=== PATIENT | male | born 1940 | race Caucasian/White ===

== ENCOUNTER 2018-02-23 16:22 | Emergency (ER) | payer MEDICARE, BC ==
[2018-02-23 16:41] VITALS: BP 114/79
--- NOTE | 2018-02-23 17:18 | UC ---
Eye Complaint HPI - HPI Summary HPI Summary: 78 yo male presents with right upper eyelid redness and swelling for the last 3 days. Has not been applying any compresses or anything OTC. Denies injury or vision changes. Mildly tender. - History of Current Complaint Chief Complaint: UCEye Stated Complaint: EYE IRRITATION Time Seen by Provider: 02/23/18 16:52 Hx Obtained From: Patient Onset/Duration: Sudden Onset Severity Initially: Mild Severity Currently: Mild Pain Intensity: 2 Pain Scale Used: 0-10 Numeric Location of Injury: Eye Lid (upper) - Allergies/Home Medications Home Medications: Home Medications Aspirin 81 mg CHEW TAB* [Aspirin Low Dose TAB*] 81 mg PO DAILY 02/23/18 [ History Confirmed 02/23/18] Atorvastatin* [Lipitor*] 10 mg PO DAILY 02/23/18 [History Confirmed 02/23/18] Dabigatran CAP(NF) [Pradaxa CAP(NF)] 75 mg PO BID 02/23/18 [History Confirmed ] Iron 18 mg PO DAILY WITH MEAL 02/23/18 [History Confirmed 02/23/18] Levothyroxine TAB* [Synthroid TAB*] 137 mcg PO 0800 02/23/18 [History Confirmed 02/23/18] Metoprolol Succinate 50 mg PO DAILY WITH MEAL 02/23/18 [History Confirmed ] PMH/Surg Hx/FS Hx/Imm Hx Endocrine History: Hypothyroidism, Dyslipidemia Cardiovascular History: Cardiac Disease, Hypertension - Surgical History Surgical History: Yes Surgery Procedure, Year, and Place: right knee surgery. right foot. bone spurs ankles - Family History Known Family History: Positive: Cardiac Disease - Social History Occupation: Retired Lives: With Family Alcohol Use: None Substance Use Type: None Smoking Status (MU): Former Smoker Type: Cigars Review of Systems Constitutional: Negative Skin: Negative Eyes: Other - Right upper eyelid swelling ENT: Negative Respiratory: Negative Cardiovascular: Negative Neurological: Negative Psychological: Negative All Other Systems Reviewed And Are Negative: Yes Physical Exam - Summary Physical Exam Summary: GENERAL: NAD. WDWN. No pain distress. SKIN: No rashes, sores, lesions, or open wounds. HEENT: Head: AT/NC Eyes: EOM intact. Conjunctiva clear without inflammation or discharge. RIGHT upper eyelid with 1-2mm nodule that is mildly erythematous and TTP. No scleral injection. NECK: Supple. Nontender. No lymphadenopathy. CHEST: No accessory muscle use. Breathing comfortably and in no distress. CV: Pulses intact. Brisk cap refill. NEURO: Alert. CN II-XII grossly intact. PSYCH: Age appropriate behavior. Triage Information Reviewed: Yes Vital Signs: Initial Vital Signs Temp 98.1 F 02/23/18 16:32 Pulse 72 02/23/18 16:32 Resp 20 02/23/18 16:32 BP 114/79 02/23/18 16:32 Pulse Ox 99 02/23/18 16:32 Vital Signs Reviewed: Yes Eye Complaint Course/Dx - Course Course Of Treatment: Stye right eye - advised to apply warm compresses in addition to anbx eye drop - Differential Dx/Diagnosis Provider Diagnoses: Stye right upper eyelid Discharge - Sign-Out/Discharge Documenting (check all that apply): Patient Departure - Discharge Plan Condition: Stable Disposition: HOME Prescriptions: Polymyx/Trimethoprim OPTH* [Polytrim OPHTH*] 1 drop RIGHT EYE QID #1 btl Patient Education Materials: Alanis (ED) Referrals: No Primary Care Phys,NOPCP [Primary Care Provider] - Additional Instructions: If you develop a fever, shortness of breath, chest pain, new or worsening symptoms - please call your PCP or go to the ED. - Billing Disposition and Condition Condition: STABLE Disposition: Home
== END 2018-02-23 17:30 | disposition home or self-care (01) ==
LOC: UCEAST 16:22
DX: H00.021 Hordeolum internum right upper eyelid (principal); E03.9 Hypothyroidism, unspecified; E78.5 Hyperlipidemia, unspecified; I10 Essential (primary) hypertension; Z79.82 Long term (current) use of aspirin; Z82.49 Family history of ischemic heart disease and other diseases of the circulatory system; Z87.891 Personal history of nicotine dependence
CPT/HCPCS: 99202; G0463

== ENCOUNTER 2018-07-16 20:26 | Observation (INO) | payer MEDICARE, BC ==
--- OUTSIDE RECORDS SUMMARY | 2018-07-16 20:40 | XMS REPORT ---
:1940 External Reference #:[id number] Author Organization [facility] Address [address] [place] [address] Phone [phone] Care Team Providers Name Role Phone Dwain Monae MD Care Team Information Fisheries Enforcement Officer Unavailable Dwain Monae MD Primary Care Physician Unavailable Payers Type Date Identification Numbers Payment Provider Subscriber Medicare Primary Effective: Policy Number: Medicare [place] Jeanne Scott JR 2003 [id number] Group Name: Medicare [address] PayID: [id number] [place] [address] Medigap Part B Policy Number: [id number] /[facility] Jeanne Scott JR Group Number: [id number] [address] [address] Group Name: [place] [address] PayID: [id number] Problems Description No Information Social History Type Date Description Comments Marital Status . 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[employer] Former Cigar Smoker 1 Daily ETOH Use Denies alcohol use Recreational Drug Use Denies Drug Use Exercise Type/Frequency Exercises rarely Allergies, Adverse Reactions, Alerts Date Description Reaction Status Severity Comments 06/18/2018 Soma active 06/18/2018 Demerol active Medications Medication Date Status Form Strength Qnty SIG Indications Ordering Provider Triamcinolone 06/18 Active Cream 0.1% 454gm apply Penny Acetonide sparingly to Evans, itchy rash INTERVENTIONAL RADIOLOGY TECHNOLOGIST bilateral upper extremities , lower extremities twice a day as needed Levothyroxine Active Tablets 137mcg 90tab 1 by mouth Penny Sodium /0000 s every day Evans, INTERVENTIONAL RADIOLOGY TECHNOLOGIST Metoprolol Active Tablets 50mg 90tab 1 by mouth Penny Succinate ER /0000 ER 24HR s every day Evans, INTERVENTIONAL RADIOLOGY TECHNOLOGIST Atorvastatin Active Tablets 10mg 90tab 1 by mouth Penny Calcium /0000 s every day Evans, INTERVENTIONAL RADIOLOGY TECHNOLOGIST Iron 27 Active Tablets 240(27Fe) 90tab 1 po daily Penny /0000 mg s Evans INTERVENTIONAL RADIOLOGY TECHNOLOGIST Aspir-81 Active Tablets 81mg 90tab 1 by mouth Penny /0000 DR vides every day Evans, INTERVENTIONAL RADIOLOGY TECHNOLOGIST Pradaxa Active Capsules 75mg 180ca 1 bid po Penny /0000 ps Evans, INTERVENTIONAL RADIOLOGY TECHNOLOGIST Cyanocobalamin Active Solution 1000mcg/M 90ml monthly subQ Penny /[address] [facility], [facility] Immunizations CPT Code Status Date Vaccine Lot # [id number] Given 06/18/2018 High-Dose, Influenza Virus Vacccine-fluzone 65 and [id number] older Vital Signs Date Vital Result Comment 06/18/2018 BP Systolic 110 mmHg BP Diastolic 80 mmHg Heart Rate 60 /min Irr Body Temperature 97.9 F Weight 221.00 lb Results Description No Information Procedures Date CPT Code Description Status 07/20/2015 Colonoscopy Completed Plan of Care Future Appointment(s):10/18/2018 1:40 pm - Dwain Monae MD at [facility] Ysyxza2506/18/2018 - Penny Krueger, FNPE03.9 Hypothyroidism, unspecifiedComments:Please book a complete physical examination with Dr Monae in 4-6 months for continued evaluation and uiufyrlhmrT30.2 Chronic atrial jypscihsihcbO08.8 Other symbolic alszutamodhnM78.9 Urticaria, unspecifiedComments:I think this is eczema, will treat accordingly, but you will also be referred to Dr Tirado After shower, oatmeal soaks/compresses/ poulticePat dry, apply triamcinolone cream while skin still moist, then follow with thick ointment such as Cera-Ve, EucerinAllNew Medication:Triamcinolone Acetonide 0.1 %Comments:~B_~U_Medication Management~b_~u_ Patient Understands medications he 's taking? Yes No Are there Barriers to Adherence? Yes No Has the patient been asked about herbal supplements and therapies, and OTC meds? Yes No As always, we strongly encourage a healthy diet and makingphysical activity a part of your every day life. If you have questions about how or where to start, please contact the office.
--- NOTE | 2018-07-16 20:45 | ED ---
Neurological HPI - HPI Summary HPI Summary: A 78 y/o male r brought in by ambulance presents to the ED c/o dizziness. In the ED room, the patient has a pulse of 70 BPM, O2 saturation of 99%, and blood pressure of 117/71. According to the patient, he became dizzy all of a sudden and became very diaphoretic/hot. He stated that he was at the [facility] in [place], [place] where he was watching his two grandchildren. He stated that he was sitting down and he started to first get hot/diaphoretic. Then he went to the bathroom where he urinated, and came back to his seat. He was still diaphoretic, but then became dizzy. He denies any chest pain or SOB. He also denies any recent sickness, chills, fever, vomiting, diarrhea, and coughing. He noted that the symptoms lasted about 15-20 minutes. He was at the [facility] about about an hour at that point. Patient noted that one time in [place] he lost consciousness, but that was a very long time ago. The patient has been eating and drinking well. No ETOH today as he does not drink. Patient's stools are always black due to the patient taking iron. As per , the patient looks perfectly normal. Patient is on HBP medication and has a history of atrial fibrillation. - History of Current Complaint Chief Complaint: EDDizziness Stated Complaint: DIZZINESS Hx Obtained From: Patient Onset/Duration: Sudden Onset, Started minutes ago, Resolved Timing: Sudden Onset Current Severity: None Number of Seizures: 0 Pain Intensity: 0 Pain Scale Used: 0-10 Numeric Character: Dizzy Aggravating: Nothing Alleviating: Nothing Associated Signs and Symptoms: Positive: Diaphoresis PMH/Surg Hx/FS Hx/Imm Hx Endocrine/Hematology History: Reports: Hx Thyroid Disease - removed Denies: Hx Diabetes Cardiovascular History: Reports: Hx Hypertension Respiratory History: Denies: Hx Asthma, Hx Chronic Obstructive Pulmonary Disease (COPD) GI History: Denies: Hx Ulcer - Surgical History Surgery Procedure, Year, and Place: right knee surgery. right foot. bone spurs ankles Infectious Disease History: No Infectious Disease History: Denies: Hx Hepatitis, Hx Human Immunodeficiency Virus (HIV), Traveled Outside the [place] in Last 30 Days - Family History Known Family History: Positive: Cardiac Disease - Social History Alcohol Use: None Substance Use Type: Reports: None Smoking Status (MU): Former Smoker Type: Cigars Review of Systems Positive: Skin Diaphoresis. Negative: Fever, Chills Negative: Erythema Negative: Sore Throat Negative: Chest Pain Negative: Shortness Of Breath, Cough Negative: Abdominal Pain, Vomiting, Nausea Negative: dysuria, hematuria Negative: Myalgia, Edema Negative: Rash Neurological: Other - POSITIVE: DIZZINESS All Other Systems Reviewed And Are Negative: Yes Physical Exam - Summary Physical Exam Summary: Constitutional: Well-developed, Well-nourished, Alert. (-) Distressed Skin: Warm, Dry HENT: Normocephalic; Atraumatic Eyes: Conjunctiva normal Neck: Musculoskeletal ROM normal neck. (-) JVD, (-) Stridor, (-) Tracheal deviation Cardio: Rhythm regular, rate normal, Heart sounds normal; Intact distal pulses; The pedal pulses are 2+ and symmetric. Radial pulses are 2+ and symmetric. (-) Murmur Pulmonary/Chest wall: Effort normal. (-) Respiratory distress, (-) Wheezes, (-) Rales Abd: Soft, (-) epigastric tenderness, (-) Distension, (-) Guarding, (-) Rebound Musculoskeletal: (-) Edema Lymph: (-) Cervical adenopathy Neuro: Alert, Oriented x3 Psych: Mood and affect Normal Triage Information Reviewed: Yes Vital Signs On Initial Exam: Initial Vitals Temp Pulse Resp BP Pulse Ox 98.1 F 78 20 117/71 99 07/16/18 20:29 07/16/18 20:29 07/16/18 20:29 07/16/18 20:29 07/16/18 20:29 Vital Signs Reviewed: Yes Diagnostics - Vital Signs Vital Signs Temp Pulse Resp BP Pulse Ox 07/16/18 20:29 98.1 F 78 20 117/71 99 - Laboratory Result Diagrams: 07/16/18 20:53 07/16/18 20:53 Lab Statement: Any lab studies that have been ordered have been reviewed, and results considered in the medical decision making process. - Radiology CXR Radiology Interpretation Completed By: ED Physician Summary of Radiographic Findings: NO ACUTE DISEASE. PENDING OFFICIAL REPORT. - EKG 2047 Cardiac Rate: Other Rate - 62 BPM EKG Rhythm: Atrial Fibrillation - 62 BPM Summary of EKG Findings: NEGATIVE STEMI. Re-Evaluation - Re-Evaluation First Eval Re-Evaluation Time: 21:40 Change: Unchanged Comment: UPDATED PATIENT ON RESULTS. Course/Dx - Course Course Of Treatment: A 78 y/o male r brought in by ambulance presents to the ED c/o dizziness. In the ED room, the patient has a pulse of 70 BPM, O2 saturation of 99%, and blood pressure of 117/71. According to the patient, he became dizzy all of a sudden and became very diaphoretic/hot. He stated that he was at the [facility] in [place], [place] where he was watching his two grandchildren. He stated that he was sitting down and he started to first get hot/diaphoretic. Then he went to the bathroom where he urinated, and came back to his seat. He was still diaphoretic, but then became dizzy. He denies any chest pain or SOB. He also denies any recent sickness, chills, fever, vomiting, diarrhea, and coughing. He noted that the symptoms lasted about 15-20 minutes. [facility]. Patient noted that one time in [place] he lost consciousness, but that was a very long time ago. The patient has been eating and drinking well. Physical examination was unremarkable. A CXR revealed no acute disease. A EKG revealed a atrial fibrillation rate of 62 BPM. Hematology and Chemistry screens were done. No significant laboratory abnormalities were found. Troponin was 0.02. In the ED course, the patient received no medications. I suspect a arrhythmia could have contributed to patient symptoms. Most likely bradycardia. Patient requires telemetry monitoring overnight. Possible medication adjustment. Patient is currently on beta blockers. Patient care was discussed with hospitalist, Dr. Gila Monte, who accepts patient for admission. Patient will be admitted with a diagnosis of symptomatic bradycardia, dizziness, and diaphoresis. Patient is agreeable with this plan. - Diagnoses Provider Diagnoses: Symptomatic bradycardia, Dizziness, Diaphoresis - Physician Notifications Discussed Care Of Patient With: Gila Monte Time Discussed With Above Provider: 21:46 Instructed by Provider To: Other - ACCEPTS PATIENT FOR ADMISSION. Discharge - Sign-Out/Discharge Documenting (check all that apply): Patient Departure - ADMIT, Sign-Out Patient - ELIZ Signing out patient TO: Gila Monte Receiving patient FROM: Renato Harman - Discharge Plan Condition: Stable Disposition: ADMITTED TO [facility] Referrals: No Primary Care Phys,NOPCP [Medical Doctor] - - Attestation Statements Document Initiated by Scribe: Yes Documenting Scribe: Jerry Dempsey Provider For Whom Adeolaibe is Documenting (Include Credential): Renato Harman MD Scribe Attestation: Jerry Mendosa, scribed for Renato Harman MD on 07/16/18 at 2143. Status of Scribe Document: Ready
[2018-07-16 21:00] LABS: ABS Basophils 0.1 10^3/ul (0-0.2); ABS Eosinophils 0.5 10^3/ul (0-0.6); ABS Lymphocytes 1.5 10^3/ul (1.0-4.8); ABS Monocytes 0.5 10^3/ul (0-0.8); ABS Neutrophils 4.9 10^3/ul (1.5-7.7); ABS Nucleated RBC 0 10^3/ul; Hematocrit 43 % (42-52); Hemoglobin 14.6 g/dl (14.0-18.0); Lymphocyte % 20.5 %; Mean Corpuscular HGB Conc 34 g/dl (31-36); Mean Corpuscular Hemoglobin 31 pg (27-31); Mean Corpuscular Volume 92 fL (80-94); Mean Platelet Volume 9.4 fL (7.4-10.4); Nucleated Red Blood Cells % 0; Platelet Count 194 10^3/ul (150-450); Red Blood Count 4.67 10^6/ul (4.00-5.40); Red Cell Distribution Width 13 % (10.5-15); White Blood Count 7.5 10^3/ul (3.5-10.8)
[2018-07-16 21:17] LABS: Albumin 4.2 g/dL (3.2-5.2); Albumin/Globulin Ratio 1.4 (1-3); Calcium 9.3 mg/dL (8.6-10.3); EGFR Non-African American 51.7 (>60); Globulin 2.9 g/dL (2-4); Potassium 4.5 mmol/L (3.5-5.0); Total Bilirubin 0.4 mg/dL (0.2-1.0); Total Protein 7.1 g/dL (6.4-8.9)
[2018-07-16 21:54] LABS: TSH (Thyroid Stimulating Horm) 7.43 mcIU/mL (0.34-5.60)
[2018-07-16 21:56] LABS: Free T4 0.75 ng/dL (0.61-1.12)
[2018-07-16] MEDS ORDERED: Acetaminophen TAB* 325 MG PO PRN (22:32)
--- NOTE | 2018-07-17 00:48 | HP ---
CC: Dr. Monae; Dr. Azul* HOSPITAL MEDICINE HISTORY AND PHYSICAL: DATE OF ADMISSION: 07/16/18 PRIMARY CARE PHYSICIAN: Dr. Monae. COSMETICS AND TOILETRIES SALESPERSON: Dr. Azul. ATTENDING PHYSICIAN: Dr. Gila Monte* (dictation provided by Judy Scott NP). CHIEF COMPLAINT: Dizzy, pale, pemberton, diaphoretic. HISTORY OF PRESENT ILLNESS: Mr. Scott is an 78-year-old male with past medical history of atrial fibrillation and hypothyroidism, who presents to the hospital today after an episode in which he became lightheaded, dizzy, pale, and diaphoretic. Mr. Scott states that he has been in his normal state of health recently with no acute complaints. He recently moved from the [facility] to [place] to be near his children. He recently established care with Dr. Monae's office and was also planned to see Dr. Azul next week for his history of atrial fibrillation. The patient states that today he was feeling well when he went out to watch his 2 granddaughters in ice skating rink. While there and seated, he suddenly became pale. He went to the bathroom to urinate, and on returning, he felt diaphoretic. His said that he looked pale and pemberton. This episode lasted about 15 to 20 minutes. He states he has never had anything exactly like this happen to him before. He has a distant history, about 15 to 20 years ago, of passing out in [place], but has had no similar episode since. The patient has a history of atrial fibrillation and is on metoprolol as well as Pradaxa. He is on levothyroxine for hypothyroidism and his reports that several years ago it was found that he "had no thyroid." In the emergency room, Mr. Scott had a heart rate running 50 to 60 with atrial fibrillation. His blood pressure was stable, running 110 to 120 systolically. His labs were remarkable only for a high TSH of 7.43 with a free T4 of 0.75. PAST MEDICAL HISTORY: 1. Hypothyroidism. 2. Atrial fibrillation, on Pradaxa. 3. Multiple knee surgeries. 4. History of symptomatic anemia, requiring blood transfusions, with admission to hospital in [facility] with no etiology determined. MEDICATIONS: 1. Iron daily with meal. 2. Levothyroxine 137 mcg p.o. daily. 3. Metoprolol succinate 50 mg p.o. daily. 4. Aspirin 81 mg p.o. daily. 5. Atorvastatin 10 mg p.o. daily. 6. Dabigatran 75 mg p.o. b.i.d. ALLERGIES: To CARISOPRODOL and MEPERIDINE. FAMILY HISTORY: The patient reports mother had pancreatitis and dad related to electrocution. SOCIAL HISTORY: The patient is a cigar smoker. Denies any alcohol or drug use. He lives with his , who is his healthcare proxy. REVIEW OF SYSTEMS: A 14-point review of systems was completed with Mr. Scott and all not mentioned above were negative. PHYSICAL EXAMINATION GENERAL: Mr. Scott is sitting up in the bed with his at his bedside. He is in no acute distress. VITAL SIGNS: Temperature 98.1, pulse rate 78, respiratory rate 20, O2 saturation 99% on room air, blood pressure 117/71. LUNGS: Clear to auscultation bilaterally with no accessory muscle use, and good aeration. HEART: S1, S2. No murmur, rub or gallop and regular. ABDOMEN: Soft, nontender. EXTREMITIES: No cyanosis or edema. SKIN: Intact. NEUROLOGIC: He is alert. He is oriented x3. He moves all extremities equally. There is no facial asymmetry or focal weakness. Extraocular movements are intact. DIAGNOSTIC STUDIES/LABORATORY DATA: Sodium 141, potassium 4.5, chloride 106, serum bicarbonate 30, BUN 24, creatinine 1.33, glucose 104, lactic acid 1.3, TSH 7.43, free T4 of 0.75. The chest x-ray shows no acute process. EKG shows an atrial fibrillation with a heart rate about 60. ASSESSMENT AND PLAN: Mr. Scott is an 78-year-old male with past medical history of atrial fibrillation and hypothyroidism, who presents to the hospital today with concern for an episode of feeling lightheaded, dizzy, pale, and diaphoretic. In the emergency room, he has been found to be in atrial fibrillation, which is chronic for him with a heart rate running about 50 to 60. Our plans are for observation in the hospital for the followin. Episode of presyncope: The patient had a bradycardia in the emergency room , although I do not see any documentation anywhere that the heart rate was less than 50 at anytime. His blood pressure is stable. It is certainly possible that he had a more profound bradycardia leading to his symptoms, but that is yet to be proven. My plan is to continue low-dose metoprolol at 12.5 mg in the morning only to avoid rebound tachycardia, but to hold for heart rate less than 65. He has no evidence of infection. He was seated at the time of the event, so it is less likely to be orthostasis. I note that he is hypothyroid and he seems to need increased replacement. I doubt that this would cause the symptoms he experienced, but I will up his levothyroxine dose. In the event that the patient is determined to have a bradycardia, then Cardiology would need to be consulted, but I have not consulted them this evening. 2. Hypothyroidism. Increase levothyroxine. 3. Atrial fibrillation. Continue Pradaxa. Continue reduced dose of metoprolol. 4. Code status is full code. 5. Disposition: To telemetry floor. TIME SPENT: Approximately 60 minutes was spent on the admission of this patient , more than half of the time was spent with the patient at the bedside reviewing the events leading up to this hospitalization, performing the physical examination and reviewing my plan of care. JUDY SCOTT NP [id number]/[facility] #: [id number] RADHA
[2018-07-17] MEDS: Levothyroxine TAB* 150 MCG TAB PO SCH (05:32)
[2018-07-17] MEDS: Aspirin 81 mg CHEW TAB* 81 MG TAB.CHEW PO SCH (07:47)
[2018-07-17] MEDS: Atorvastatin* 10 MG TAB PO SCH (07:47)
[2018-07-17] MEDS: CMC:Dabigatran CAP(NF) 75 MG CAP PO SCH ×2 (08:13→20:01)
[2018-07-17] MEDS ORDERED: Metoprolol Tartrate TAB* 25 MG PO SCH (09:00)
[2018-07-17] MEDS ORDERED: Iodixanol* (CONTRAST) 320 MG/ML 100 ML SDV IV ONE (09:10)
[2018-07-17] MEDS ORDERED: Meclizine TAB* 12.5 MG PO PRN (11:09)
[2018-07-17] MEDS: Carbamide Peroxide 6.5% OTIC* 15 ML BTL BOTH EARS SCH ×2 (12:36→20:01)
--- NOTE | 2018-07-17 14:58 | PN ---
Subjective Date of Service: 07/17/18 Interval History: Pt seen and examined. Meds and labs reviewed. On further review of his S/S prior to admission, he mentions that at the time that he was feeling he was about to pass-out, he felt as if he was spinning around his house. Also reviewed tele and pt has A. fib w/bradycardia in high 30s, however, pt mentioned he has been asymptomatic since he has been in the hospital. CC: N/A ROS: Denied GALLOWAY/dizziness, F/C, N/V, CP, SOB, increased cough, sputum production , abd pain, diarrhea, constipation, dysuria, myalgias, arthralgias, throat pain , and new skin lesions. The rest of the 14 point ROS are unremarkable. PHYSICAL EXAM: GEN APPEARANCE: Awake, not in acute distress HEENT: NC/AT, PERRLA, moist oral mucosa, (-) throat erythema, (-) external auditory canal inflammation, (+)impacted cerumen, tympanic membrane cannot be visualized due to amount of cerumen NECK: Soft, supple, (-) cervical LAD, (-)JVD HEART: S1S2 WNL, RRR, No MRG CHEST: CTA, BL, GAE, No W/R/R ABD: Soft, ND/NT, NABS 4x Q EXT: No C/C/E SKIN: Warm to touch PSYCH: No active psychosis, hallucinations, depression, SI/HI Objective Active Medications: Acetaminophen (Tylenol Tab*) 650 mg PO Q6H PRN PRN Reason: PAIN Aspirin (Aspirin 81 Mg Chew Tab*) 81 mg PO DAILY [facility] Last Admin: 07/17/18 07:47 Dose: 81 mg Atorvastatin Calcium (Lipitor*) 10 mg PO DAILY [facility] Last Admin: 07/17/18 07:47 Dose: 10 mg Carbamide Peroxide (Debrox 6.5% Otic*) 10 drop BOTH EARS BID [facility] Stop: 07/21/18 11:59 Last Admin: 07/17/18 12:36 Dose: 10 drop Dabigatran (Pradaxa Cap(Nf)) 75 mg PO BID [facility] Last Admin: 07/17/18 08:13 Dose: 75 mg Levothyroxine Sodium (Synthroid Tab*) 150 mcg PO DAILY@0600 [facility] Last Admin: 07/17/18 05:32 Dose: 150 mcg Meclizine HCl (Antivert Tab*) 50 mg PO Q6H PRN PRN Reason: VERTIGO Metoprolol Tartrate (Lopressor Tab*) 6.25 mg PO DAILY JACKI Vital Signs - 8 hr 07/17/18 07/17/18 07/17/18 07:22 10:17 10:47 Temperature 97.5 F Pulse Rate 73 69 54 Respiratory 16 Rate Blood Pressure 102/68 104/66 107/77 (mmHg) O2 Sat by Pulse 98 97 97 Oximetry 07/17/18 07/17/18 10:53 10:54 Temperature Pulse Rate 64 64 Respiratory Rate Blood Pressure 104/79 104/79 (mmHg) O2 Sat by Pulse 98 Oximetry Oxygen Devices in Use Now: None Result Diagrams: 07/16/18 20:53 07/16/18 20:53 Assess/Plan/Problems-Billing Assessment: - Patient Problems (1) Pre-syncope Current Visit: Yes Status: Acute Comment: -Likely due to vertigo possibly induced by impacted cerumen on physical exam vs. BPPV of elderly -Will ask PT to perform [place]-Hallpike maneuver to determine if more consistent w/ posterior semi-circular canal otolith causing BPPV -Will place pt on PRN Meclizine but currently asymptomatic -Given hx of CVA and TIAs that mentioned today that was not mentioned on admission, I have ordered CTA of H&N, w/c was just resulted and showed no concerning aneurysms nor significant DHRUV -I have also ordered the following to complete a pre-syncope/syncopal w/u: -D-dimer: WNL -FT4: WNL---Although TSH was mildly elevated possibly due to acute vertigo? Will defer w/PCP to repeat in 3-6 weeks once the acute process has subsided to see if any adjustments would be necessary -Prolactin: WNL -Othostatic VS: Pt NOT orthostatic -Given bradycardia for w/c he is currently asymptomatic, it may further produce above pre-syncopal episodes in light of new onset vertigotherefore will lower dose of Metoprolol as ordered -Given no lingering vertigo to suggest a small isolated lacunar infarct along w/ absence of any CN deficits, I doubt that this is a CVA, however, will continue to observe and defer w/covering hospitalist in AM to see if they feel that an MRI is necessary prior to D/C (2) Impacted cerumen of both ears Current Visit: Yes Status: Acute Code(s): H61.23 - IMPACTED CERUMEN, BILATERAL SNOMED Code(s): 18094510 Comment: -Will place pt on otic Debrox gtts -Please see above discussion (3) Bradycardia Current Visit: Yes Status: Acute Code(s): R00.1 - BRADYCARDIA, UNSPECIFIED SNOMED Code(s): 02026629 Comment: -Lowered dose of Metoprolol -Pt mentions he has been asymptomatic throughout this hospitalization -Continue watchful waiting (4) Hypothyroidism Current Visit: Yes Status: Acute Code(s): E03.9 - HYPOTHYROIDISM, UNSPECIFIED SNOMED Code(s): 86588273 Comment: -Continue current regimen -Repeat FT4 and TSH in 3-6 weeks after acute issue that led to his hospitalization has passed -Please see above discussion (5) Atrial fibrillation Current Visit: Yes Status: Acute Code(s): I48.91 - UNSPECIFIED ATRIAL FIBRILLATION SNOMED Code(s): 35086694 Comment: -Continue lowered dose of Metoprolol -Continue Pradaxa (6) DVT prophylaxis Current Visit: Yes Status: Acute Code(s): BTP1712 - SNOMED Code(s): 835212315 Comment: -On Pradaxa Status and Disposition: -For PT eval -Possible D/C in AM if all above W/U unremarkable and pt continues to be assymptomatic
[2018-07-18] MEDS: Levothyroxine TAB* 150 MCG TAB PO SCH (05:19)
[2018-07-18 07:21] LABS: ABS Basophils 0 10^3/ul (0-0.2); ABS Eosinophils 0.4 10^3/ul (0-0.6); ABS Lymphocytes 1.8 10^3/ul (1.0-4.8); ABS Monocytes 0.5 10^3/ul (0-0.8); ABS Neutrophils 4.5 10^3/ul (1.5-7.7); ABS Nucleated RBC 0 10^3/ul; Hematocrit 40 % (42-52); Hemoglobin 13.8 g/dl (14.0-18.0); Lymphocyte % 24.4 %; Mean Corpuscular HGB Conc 34 g/dl (31-36); Mean Corpuscular Hemoglobin 32 pg (27-31); Mean Corpuscular Volume 92 fL (80-94); Mean Platelet Volume 9.7 fL (7.4-10.4); Nucleated Red Blood Cells % 0.1; Platelet Count 159 10^3/ul (150-450); Red Blood Count 4.36 10^6/ul (4.00-5.40); Red Cell Distribution Width 13 % (10.5-15); White Blood Count 7.3 10^3/ul (3.5-10.8)
[2018-07-18 07:37] LABS: Albumin 3.7 g/dL (3.2-5.2); Albumin/Globulin Ratio 1.4 (1-3); BUN/Creatinine Ratio 16.8 (8-20); Calcium 8.9 mg/dL (8.6-10.3); EGFR Non-African American 58.8 (>60); Globulin 2.6 g/dL (2-4); Magnesium 1.9 mg/dL (1.9-2.7); Phosphorus 3.4 mg/dL (2.5-5.0); Potassium 3.9 mmol/L (3.5-5.0); Total Bilirubin 0.7 mg/dL (0.2-1.0); Total Protein 6.3 g/dL (6.4-8.9)
[2018-07-18] MEDS ORDERED: Metoprolol Tartrate TAB* 25 MG PO SCH (09:00)
[2018-07-18] MEDS: CMC:Dabigatran CAP(NF) 75 MG CAP PO SCH (09:20)
[2018-07-18] MEDS: Aspirin 81 mg CHEW TAB* 81 MG TAB.CHEW PO SCH (09:21)
[2018-07-18] MEDS: Atorvastatin* 10 MG TAB PO SCH (09:22)
--- NOTE | 2018-07-18 12:02 | ECHO ---
Patient: SARATH WILSON [facility] Rec#: [id number] : 1940 Date: 07/18/2018 Age: 78y Height: 173 cm / 68.1 in Weight: 97.1 kg / 214.0 lbs Sex: M BSA: 2.11 Room#: [facility] Admit Date#: 07/16/2018 Type: Inpatient Referring: Deep Monae Reading: Laz Hatch MD Sonography Technician: Faby Bagley RN RDCS CC: Dwain Haines Transthoracic Echocardiogram Indication: Pre-syncope, dizziness BP: 126/80 HR: 50 Rhythm: A-Fib Findings History: A. fib, hypothyroid, anemia, cigar smoker Technical Comments: The study is technically limited due to patient body habitus. Left Ventricle: The left ventricular chamber size is normal. Moderate concentric left ventricular hypertrophy is observed. Global left ventricular wall motion and contractility are within normal limits. There is normal left ventricular systolic function. The estimated ejection fraction is 60-65%. The assessment of diastolic function is non-diagnostic. Left Atrium: The left atrium is mild to moderately dilated. Right Ventricle: The right ventricular cavity size is normal. The right ventricular global systolic function is normal. Right Atrium: The right atrium is mildly dilated. Aortic Valve: The aortic valve structure is not well visualized. The aortic valve leaflets are moderately thickened. There is evidence of aortic sclerosis without stenosis. There is no evidence of aortic regurgitation. There is no evidence of aortic stenosis. Mitral Valve: The mitral valve leaflets are mildly thickened. There is mild mitral regurgitation. Tricuspid Valve: The tricuspid valve leaflets are normal. There is trace tricuspid regurgitation. Unable to estimate the right ventricular systolic pressure. Pulmonic Valve: The pulmonic valve structure is not well visualized. There is no evidence of pulmonic regurgitation. There is no pulmonic stenosis. Pericardium: There is no significant pericardial effusion. A pericardial fat pad is visualized. Aorta: There is mild dilatation of the ascending aorta. The aortic arch is not well visualized. The aortic root is normal in size. Pulmonary Artery: The main pulmonary artery is not well visualized. Venous: The inferior vena cava appears normal in size. There is a greater than 50% respiratory change in the inferior vena cava dimension. Conclusions There is normal left ventricular systolic function. The estimated ejection fraction is 60-65%. Global left ventricular wall motion and contractility are within normal limits. The left ventricular chamber size is normal. Moderate concentric left ventricular hypertrophy is observed. The left atrium is mild to moderately dilated. The right atrium is mildly dilated. There is mild mitral regurgitation. There is mild dilatation of the ascending aorta. There is no prior echocardiogram available to compare with at this time. Measurements Name Value Normal Range RVDdMajor (2D) 4.3 cm (2.2 - 4.4) RAd ISD 4CH 5.6 cm (3.4 - 4.9) RA (A4C)W 4.3 cm (2.9 - 4.6) IVSd (2D) 1.4 cm (0.6 - 1) LVPWd (2D) 1.4 cm (0.6 - 1) LVIDd (2D) 3.9 cm (3.6 - 5.4) Aortic Annulus 2.2 cm (1.4 - 2.6) Ao root diameter (2D) 3.4 cm (2.1 - 3.5) Ascending Ao 3.5 cm (2.1 - 3.4) LA dimension (AP) 2D 4.3 cm (2.3 - 3.8) LAd ISD 4CH 5.5 cm (2.9 - 5.3) LA ISD 4CH W 5 cm (2.5 - 4.5) Name Value Normal Range LA ESV BP (A/L) index 38.1 ml/m2 - Name Value Normal Range MV E-wave Vmax 0.82 m/sec - MV deceleration time 212 msec - LV septal e' Vmax 0.05 m/sec - LV lateral e' Vmax 0.07 m/sec - LV E:e' septal ratio 16.4 ratio - LV E:e' lateral ratio 11.7 ratio - Name Value Normal Range AV Vmax 1.3 m/sec - AV VTI 23.7 cm - AV peak gradient 6 mmHg - AV mean gradient 3 mmHg - LVOT Vmax 0.73 m/sec - LVOT VTI 13.1 cm - LVOT peak gradient 2 mmHg - LVOT mean gradient 1 mmHg - Name Value Normal Range IVC diameter 1.8 cm - Name Value Normal Range PV Vmax 0.6 m/sec -
[2018-07-18 12:13] VITALS: BP 104/77
[2018-07-18] MEDS: Carbamide Peroxide 6.5% OTIC* 15 ML BTL BOTH EARS SCH (13:35)
--- NOTE | 2018-07-19 00:14 | DS ---
CC: Dr. Dwain Monae; Dr. Azul* DISCHARGE SUMMARY: DATE OF ADMISSION: 07/16/18 DATE OF DISCHARGE: 07/18/18 PRIMARY CARE PROVIDER: Dr. Dwain Monae. MSW: Dr. Azul. PRIMARY DIAGNOSES: 1. Presyncope. 2. Impacted cerumen. SECONDARY DIAGNOSES: Include: 1. Chronic atrial fibrillation, on Pradaxa. 2. Hypothyroidism. 3. Multiple knee injuries. 4. History of anemia. MEDICATIONS AT DISCHARGE: Include: 1. Levothyroxine 137 mcg daily. 2. Iron 18 mg daily with meals. 3. Dabigatran 75 mg twice daily. 4. Atorvastatin 10 mg daily. 5. Aspirin 81 mg daily. 6. Metoprolol succinate 25 mg daily, please note reduced the dose. 7. Debrox 10 drops both ears twice daily. PERTINENT LABORATORY DATA: TSH of 7.4 with a free T4 of 0.75. Creatinine on presentation 1.3 and on discharge 1.19. D-dimer less than 200. IMAGING PERFORMED DURING HOSPITAL STAY: Transthoracic echocardiogram, impression: Estimated EF 60% to 65%. LV chamber size is normal. Moderate concentric left ventricular hypertrophy. Left atrium is [id number] dilated. Right atrium is mildly dilated. Mild MR. Mild dilatation of the ascending aorta. CTA head: Negative CT angiogram of the head. HISTORY OF PRESENT ILLNESS AND HOSPITAL COURSE: This is an 78-year-old man with past medical history as outlined in the history of present illness on the day of admission including chronic atrial fibrillation as well as hypothyroidism , who presented to the hospital after having an episode of lightheadedness and dizziness associated with being pale and diaphoretic after walking to urinate and then upon returning. The patient could not indicate whether this was a lightheadedness or presyncopal episode began while urinating, but he was noticed to be lightheaded and pale by his after returning from the bathroom. In the emergency room, he was found with heart rate of 50s, there was thought to be some concern for asymptomatic bradycardia. His metoprolol was titrated down during the course of the hospital stay; however, his heart rate remained relatively constant in the 50s and low 60s. His symptoms did not return including with ambulation, making symptomatic bradycardia on presentation less likely as the etiology of his symptomatology. I suspect, he had a vagal event in the setting of micturition, although underlying arrhythmias cannot be completely excluded. The patient's TSH was elevated; however, C4 was within normal limits in the setting of presumptive hospital. Originally, his Synthroid was increased on presentation, but titrated back down to his home dose upon discharge. There could be some consideration to recheck TSH in 4 to 6 weeks. Additional attention to up-titrating metoprolol back to home dose could be made at followup depending on the patient's symptoms as well as vital signs. No other changes were made during the course of the patient's hospital stay. He was discharged on the in good health, ambulating with a cane, back to his normal vital signs. It was noted by Dr. Monae that the patient had impacted cerumen of both ears, for which he was started on Debrox. Attention should be paid to resolution of followup. At followup, please; 1. Consider returning to metoprolol back to 50 mg based on vital signs when seen in the office. 2. Evaluate auditory canals for additional need for disimpaction after Debrox. 3. Follow TSH in 4 to 6 weeks. No changes to presenting levothyroxine doses were made. 4. No other specific labs or vitals that need followup. Reasons to return to the hospital including, but not limited to recurrent or worsening symptoms of chest pain, shortness of breath, nausea, vomiting, lightheadedness, loss of consciousness or near loss of consciousness, inability to obtain or tolerate medications were discussed with the patient. He acknowledged the understanding. TIME SPENT: Greater than 60 minutes was spent on the discharge of this patient , greater than half was spent [id number] with the patient and his . [id number]/[facility] #: [id number] MTDD
== END 2018-07-18 14:37 | disposition home or self-care (01) ==
LOC: ED 20:26 → MEDTELE 22:30
PROVIDERS: ADMIT Internal Medicine; ATTEND Internal Medicine
DX: R55 Syncope and collapse (principal); H61.23 Impacted cerumen, bilateral; I48.2 Chronic atrial fibrillation; E03.9 Hypothyroidism, unspecified; D64.9 Anemia, unspecified; Z79.82 Long term (current) use of aspirin; R00.1 Bradycardia, unspecified; I48.91 Unspecified atrial fibrillation
CPT/HCPCS: 36415; 70496; 70498; 71045; 80053; 83605; 83735; 84100; 84146; 84439; 84443; 84484; 85025; 85379; 93005; 93306; 99283; A9270-GY; G8978-GP-CK; G8979-GP-CK; G8980-GP-CK; Q9967

== ENCOUNTER 2019-01-13 07:26 | Day surgery (SDC) | payer MEDICARE, BC ==
[~2019-01-13 07:26] MED LIST: Acetaminophen TAB* 325 MG PO PRN; Buffered Lidocaine 1% SYRIN* 1 ML/SYRINGE INTRADERM ONE; Famotidine IV* 10 MG/ML 2 ML (20 mg) IV ONE; HYDROcodone/ACETAMIN 5-325 MG* 1 TAB PO PRN; Lactated Ringers 1000 ML Bag* 1,000 ML IV SCH; Naloxone* 0.4 MG/ML 1 ML VIAL IV PRN; Ondansetron INJ* 2 MG/ML VIAL IV PRN; fentaNYL* 50 MCG/ML 2 ML VIAL (100 MCG VIAL) IV PRN
[2019-01-13] MEDS ORDERED: fentaNYL* 50 MCG/ML 2 ML VIAL (100 MCG VIAL) ONE (09:25)
[2019-01-13] MEDS ORDERED: Midazolam* 1 MG/ML 2 ML VIAL (2 MG) ONE (09:26)
[2019-01-13] MEDS ORDERED: Propofol* 10 MG/ML 20 ML BTL ONE ×2 (09:26→11:31)
[2019-01-13] MEDS ORDERED: Lidocaine 2% PF * 5 ML VIAL ONE (09:26)
[2019-01-13] MEDS ORDERED: Famotidine IV* 10 MG/ML 2 ML (20 mg) ONE (09:42)
[2019-01-13] MEDS ORDERED: ceFAZolin 2 GM in NS PREMIX(*) 2 GM/100 ML BAG IVPB ONE (09:42)
[2019-01-13] MEDS ORDERED: Lidocain 1% EPI 1:100,000 * 30 ML MDV ONE (09:53)
[2019-01-13] MEDS ORDERED: Bupivacaine 0.25% SDV PF* 10 ML VIAL INJ ONE (10:07)
[2019-01-13] MEDS ORDERED: Mineral Oil Sterile, TOPICAL* 25 ML BTL ONE (10:07)
[2019-01-13 13:33] VITALS: BP 109/81
--- NOTE | 2019-01-14 15:15 | PN ---
Progress Note - Progress Note Date of Service: 01/14/19 Note: Received a call concerning mental status changes with Mr. Scott after having a MAC anesthetic yesterday. I spoke with patient's and states very confused but able to eat, drink, ambulate without difficulty. She reported no obvious signs of CVA including arm or leg or verbal changes. I reassured her that these changes are most likely POC changes and should improve. I encouraged her that if there were worsening symptoms/signs to go to ED for evaluation. I will check in with patient tomorrow for follow up. All questions were answered. Dr. Benavides
--- NOTE | 2019-01-17 11:15 | PN ---
Progress Note - Progress Note Date of Service: 01/17/19 - Anesthesia Note Note: I spoke with Mrs. Scott on Thursday who states her mental status has returned to his baseline. She had no other concerns and her questions were answered. Dr. Benavides
== END 2019-01-13 13:49 | disposition home or self-care (01) ==
LOC: OR 07:26
PROVIDERS: ATTEND Plastic Surgery
DX: C44.222 Squamous cell carcinoma of skin of right ear and external auricular canal (principal); I48.91 Unspecified atrial fibrillation; I45.10 Unspecified right bundle-branch block; Z72.0 Tobacco use; E03.9 Hypothyroidism, unspecified; Z79.01 Long term (current) use of anticoagulants; I10 Essential (primary) hypertension
CPT/HCPCS: 88305; 88329; A9270-GY; J0690; J2250; J2704; J3010; J3490

== ENCOUNTER 2022-02-06 12:52 | Observation (INO) ==
[2022-02-06 13:47] LABS: ABS Lymphocytes 1.4 10^3/ul (1.0-4.8); ABS Monocytes 0.5 10^3/ul (0-0.8); ABS Neutrophils 3.1 10^3/ul (1.5-7.7); Eosinophil % 0.9 %; Hematocrit 44 % (42-52); Hemoglobin 14.8 g/dL (14.0-18.0); Lymphocyte % 27.1 %; Mean Corpuscular HGB Conc 34 g/dL (31-36); Mean Corpuscular Hemoglobin 31 pg (27-31); Mean Corpuscular Volume 92 fL (80-94); Mean Platelet Volume 10.1 fL (7.4-10.4); Platelet Count 155 10^3/uL (150-450); Red Blood Count 4.77 10^6 /uL (4.18-5.48); Red Cell Distribution Width 13 % (10-15)
[2022-02-06 14:32] LABS: Albumin 4.3 g/dL (3.2-5.2); Albumin/Globulin Ratio 1.5 (1-3); Globulin 2.9 g/dL (2-4); Potassium 4.3 mmol/L (3.5-5.0); Total Bilirubin 0.9 mg/dL (0.2-1.0); Total Protein 7.2 g/dL (6.4-8.9); eGFR CKD-EPI 65.9 (>60)
[2022-02-06 17:44] LABS: Urine Appearance Clear; Urine Color Yellow
[2022-02-06 17:45] LABS: Urine Bilirubin 1+ (Small) (Negative); Urine Blood Negative (Negative); Urine Glucose Negative (Negative); Urine Ketones Negative (Negative); Urine Nitrite Negative (Negative); Urine Protein Negative (Negative); Urine Specific Gravity 1.025 (1.005-1.030); Urine Urobilinogen 1.0 (Negative) (Negative)
[2022-02-06] MEDS: CMCS: Dabigatran 75 mg CAP (NF) PO SCH (23:33)
[2022-02-07] MEDS: CMCS: Dabigatran 75 mg CAP (NF) PO SCH (10:36)
[2022-02-07] MEDS: CMCS: Dabigatran 150 mg CAP (NF) PO SCH (20:37)
[2022-02-08] MEDS: CMCS: Dabigatran 150 mg CAP (NF) PO SCH (10:49)
[2022-02-08 15:49] VITALS: BP 123/87
== END 2022-02-08 16:00 | disposition swing bed (61) ==
LOC: ED 12:52 → EDHOLD 12:52 → SUATTDRO 17:02 → MEDTELE 19:45
PROVIDERS: ADMIT Internal Medicine; ATTEND Student in an Organized Health Care Education/Training Program

== ENCOUNTER 2022-03-01 15:07 | Inpatient (IN) ==
[2022-03-01] MEDS ORDERED: Cyanocobalamin INJ 1,000 MCG/ML VIAL 1 ML VIAL IM SCH (16:00)
[2022-03-01] MEDS: CMC:Dabigatran 150 mg CAP (NF) PO SCH (19:18)
[2022-03-02] MEDS: CMC:Dabigatran 150 mg CAP (NF) PO SCH ×2 (07:47→21:26)
[2022-03-03] MEDS: CMC:Dabigatran 150 mg CAP (NF) PO SCH ×2 (09:02→19:23)
[2022-03-03] MEDS ORDERED: COVID VACC, MONOVAL PFIZER-TRIS 30 MCG/0.3 ML SYR IM ONE (15:21)
[2022-03-03 18:18] LABS: Rapid COVID-19 Molecular Detected (Undetected)
[2022-03-04] MEDS: CMC:Dabigatran 150 mg CAP (NF) PO SCH (07:41)
[2022-03-04 07:43] VITALS: BP 117/82
== END 2022-03-04 09:55 | DRG 884 ==
LOC: SUATTDRO 15:07 → MED 15:07
PROVIDERS: ADMIT Physician Assistant; ATTEND Internal Medicine

== ENCOUNTER 2022-12-23 03:37 | Observation (INO) ==
[2022-12-23 04:01] LABS: ABS Basophils 0.1 10^3/uL (0.0-0.1); ABS Eosinophils 0.3 10^3/uL (0.0-0.5); ABS Lymphocytes 2.2 10^3/uL (1.0-4.8); ABS Monocytes 0.8 10^3/uL (0.0-1.1); ABS Neutrophils 6.5 10^3/uL (1.5-7.6); ABS Nucleated RBC 0.01 10^3/ul; Eosinophil % 2.5 %; Lymphocyte % 22.2 %; Mean Corpuscular Hemoglobin 31.2 pg (27-33); Mean Corpuscular Hgb Conc 34.2 g/dL (31-36); Mean Corpuscular Volume 91.1 fL (80-97); Mean Platelet Volume 9.8 fL (7.5-11.2); Nucleated Red Blood Cells % 0.1 /100 WBC (0.0-0.4); Platelet Count 194 10^3/uL (150-450); Red Blood Count 4.18 10^6/uL (4.06-5.63); Red Cell Distribution Width 14.4 % (12-17); White Blood Count 9.8 10^3/uL (3.6-10.2)
[2022-12-23 04:16] LABS: Albumin 3.9 g/dL (3.2-5.2); Albumin/Globulin Ratio 1.3 (1-3); Calcium 8.8 mg/dL (8.6-10.3); Creatinine, Serum 1.14 mg/dL (0.67-1.17); Globulin 2.9 g/dL (2-4); Potassium 4.2 mmol/L (3.5-5.0); Total Bilirubin 0.9 mg/dL (0.2-1.0); Total Protein 6.8 g/dL (6.4-8.9); eGFR CKD-EPI 63.4 (>60)
[2022-12-23 05:24] LABS: High Sensitivity Troponin 1 Hr 38 pg/mL (<20)
[2022-12-23] MEDS ORDERED: Acetaminophen IV 1 GM/100ML 1,000 MG/100 ML BAG IV ONE (11:05)
[2022-12-23 11:50] LABS: Urine Appearance Clear; Urine Bilirubin Negative (Negative); Urine Blood Negative (Negative); Urine Color Yellow; Urine Glucose Negative (Negative); Urine Ketones Negative (Negative); Urine Nitrite Negative (Negative); Urine Protein Negative (Negative); Urine Specific Gravity 1.021 (1.002-1.030); Urine Urobilinogen Negative (Negative)
[2022-12-23] MEDS ORDERED: Acetaminophen IV 1 GM/100ML 1,000 MG/100 ML BAG IV PRN (16:51)
[2022-12-24 07:04] LABS: INR 1.46 (0.88-1.18)
[2022-12-24 07:05] LABS: ABS Eosinophils 0.2 10^3/uL (0.0-0.5); ABS Lymphocytes 1.6 10^3/uL (1.0-4.8); ABS Monocytes 0.6 10^3/uL (0.0-1.1); ABS Neutrophils 4.3 10^3/uL (1.5-7.6); Eosinophil % 3.4 %; Hematocrit 36.5 % (38-53); Hemoglobin 12.4 g/dL (13.2-16.3); Lymphocyte % 23.4 %; Mean Corpuscular Hemoglobin 31.1 pg (27-33); Mean Corpuscular Volume 91.5 fL (80-97); Mean Platelet Volume 9.5 fL (7.5-11.2); Platelet Count 180 10^3/uL (150-450); Red Blood Count 3.99 10^6/uL (4.06-5.63); Red Cell Distribution Width 14.1 % (12-17); White Blood Count 6.7 10^3/uL (3.6-10.2)
[2022-12-24 07:15] LABS: Calcium 8.9 mg/dL (8.6-10.3); Creatinine, Serum 0.97 mg/dL (0.67-1.17)
[2022-12-24 08:16] LABS: Magnesium 1.9 mg/dL (1.9-2.7)
[2022-12-24] MEDS ORDERED: Heparin 5000 UNITS/ML 1 mL VIAL SUBCUT SCH (14:00)
[2022-12-25 06:06] VITALS: BP 125/79
== END 2022-12-25 11:25 ==
LOC: EDHOLD 03:37 → ED 03:37 → MEDTELE 17:22
PROVIDERS: ADMIT Internal Medicine; ATTEND Internal Medicine